=== PATIENT | male | born 1930 | race African-American/Black ===

== ENCOUNTER 2018-02-20 01:26 | Emergency (ER) | payer MEDICARE ==
[~2018-02-20] VITALS: Ht 170.2 cm; Wt 59.0 kg
[2018-02-20] MEDS ORDERED: KETOROLAC 30MG/ML VIAL IV STA (01:59)
[2018-02-20] MEDS ORDERED: LORAZEPAM 2MG/ML CPJ IV ONE (02:00)
[2018-02-20 02:22] LABS: HEMATOCRIT. 38.1 % (42.0-52.0); HEMOGLOBIN. 12.4 g/dL (14.0-18.0); MEAN CORPUSCULAR HEMOGLOBIN 30.3 pg (28.0-32.0); MEAN CORPUSCULAR VOLUME 93.1 fL (80.0-94.0); MEAN PLATELET VOLUME 7.1 fl (7.4-10.4); PLATELET 271 x1000/uL (130-400); RED BLOOD CELL COUNT 4.09 mill/uL (4.7-6.1); RED CELL DISTRIBUTION WIDTH 16.5 % (11.6-14.6)
[2018-02-20 04:51] LABS: PLATELET ESTIMATE NORMAL
[2018-02-20 05:10] LABS: INR 1.1
[2018-02-20 15:48] VITALS: BP 132/71
== END 2018-02-20 16:20 | disposition short-term general hospital (02) ==
LOC: ER 01:26 → SUPCPDRO 05:48 → EDBEDREQTM 14:01 → EDBEDREQ 14:01 → ENRESERV 14:30 → CANRESERV 14:30 → CMPBEDREQ 15:57 → ER 16:20
DX: G89.18 Other acute postprocedural pain (principal); M19.90 Unspecified osteoarthritis, unspecified site; J44.9 Chronic obstructive pulmonary disease, unspecified; E11.9 Type 2 diabetes mellitus without complications; Z88.5 Allergy status to narcotic agent
CPT/HCPCS: 36415; 73070; 73560; 80048; 85025; 85610; 96374; 96375; 99285; J1885; J2060